=== PATIENT | female | born 1970 | race Caucasian/White ===

== ENCOUNTER 2016-04-12 20:30 | Emergency (ER) | payer MEDICAID ==
[~2016-04-12 20:30] MED LIST: 24HOUR ALLERGY10 MG PO; CYMBALTA30 M1 PO; GABAPENTIN300 M1 PO; LYRICA75 MG/CAP PO; OMEPRAZOLE40 M2 PO; XANAX0.5 M1 PO
[2016-04-12] MEDS ORDERED: LYRICA (20:42)
[2016-04-12] MEDS ORDERED: LISINIPRIL (20:42)
[2016-04-12] MEDS ORDERED: XANAX (20:43)
[2016-04-12 22:00] LABS: BASO % 0.4 % (0-2); EOSINOPHIL ABSOLUTE COUNT 0.2 tho/cmm (0.0-0.7); HCT-HEMATOCRIT 34.7 % (34.0-49.0); HGB-HEMOGLOBIN 11.8 gm/dl (12.0-15.5); IMMATURE GRANULOCYTES ABSOLUTE 0.02 tho/cmm (0-0.03); IMMATURE GRANULOCYTES PERCENT 0.2 % (0-0.3); LYMPH ABSOLUTE COUNT 2.3 tho/cmm (0.8-4.5); MCH (MEAN CORPUSCULAR HGB) 30.2 pg (28.0-32.0); MCV (MEAN CELL VOLUME) 88.7 fl (82.0-96.0); MEAN PLATELET VOLUME 9.2 cmc (9.4-12.4); MONO % 6.6 % (0-12); MONOCYTE ABSOLUTE COUNT 0.6 tho/cmm (0.0-1.2); NEUTROPHIL ABSOLUTE COUNT 5.3 tho/cmm (1.6-8.0); NEUTROPHIL-AUTOMATED 5.3 tho/cmm (1.6-8.0); NEUTROPHILS % 63.8 % (40-80); PLATELET COUNT 388 tho/cmm (150-450); RED BLOOD COUNT 3.91 mil/cmm (4.00-5.20); RED CELL DISTRIBUTION WIDTH 15.4 % (12.4-16.4); WHITE BLOOD COUNT 8.3 tho/cmm (4.0-10.0)
[2016-04-12 22:14] LABS: ALB/GLOB RATIO 0.8 (0.8-2.0); ALBUMIN 3.3 g/dl (3.5-5.0); ALKALINE PHOSPHATASE 63 U/L (33-138); ALT/SGPT 17 U/L (12-78); BILIRUBIN,TOTAL 0.1 mg/dl (0-1.5); BLOOD UREA NITROGEN 12 mg/dl (6-24); CALCIUM 7.9 mg/dl (8.5-10.5); CARBON DIOXIDE-VENOUS 19 mmol/L (22-32); CHLORIDE 110 mmol/l (96-110); CREATININE 0.62 mg/dl (0.50-1.10); GLUCOSE 80 mg/dL (70-110); LIPASE 296 U/L (73-393); SODIUM 141 mmol/L (135-145); eGFR VALUE FOR BLACK >90 mL/Min
[2016-04-12 22:21] LABS: PREGNANCY-SERUM NEGATIVE (NEGATIVE)
[2016-04-12 22:29] LABS: ANION GAP 16 mmol/L (0-20); AST/SGOT 19 U/L (10-40); POTASSIUM 3.7 mmol/L (3.7-5.1)
[2016-04-12 23:19] LABS: ALCOHOL (ETOH) 276 mg/dl (<10)
== END 2016-04-13 01:34 ==
LOC: EDMED 20:30
PROVIDERS: Emergency Medicine
DX: R52 Pain, unspecified (principal); F10.129 Alcohol abuse with intoxication, unspecified; I10 Essential (primary) hypertension; Z98.890 Other specified postprocedural states; Z79.899 Other long term (current) drug therapy; Y90.8 Blood alcohol level of 240 mg/100 ml or more
CPT/HCPCS: G0480; J7030

== ENCOUNTER 2016-04-24 23:23 | Emergency (ER) | payer MEDICAID ==
[~2016-04-24 23:23] MED LIST changes: +LISINIPRIL; +LYRICA; +XANAX
[2016-04-25 01:03] LABS: BASO % 0.3 % (0-2); EOS % 1.2 % (0-7); EOSINOPHIL ABSOLUTE COUNT 0.1 tho/cmm (0.0-0.7); HCT-HEMATOCRIT 38.3 % (34.0-49.0); HGB-HEMOGLOBIN 12.9 gm/dl (12.0-15.5); IMMATURE GRANULOCYTES ABSOLUTE 0.02 tho/cmm (0-0.03); IMMATURE GRANULOCYTES PERCENT 0.2 % (0-0.3); LYMPH % 28.3 % (20-45); LYMPH ABSOLUTE COUNT 2.6 tho/cmm (0.8-4.5); MCH (MEAN CORPUSCULAR HGB) 29.4 pg (28.0-32.0); MCHC MEAN CORPUSCULAR HGB CONC 33.7 % (32.0-36.0); MCV (MEAN CELL VOLUME) 87.2 fl (82.0-96.0); MEAN PLATELET VOLUME 8.7 cmc (9.4-12.4); MONO % 7.7 % (0-12); MONOCYTE ABSOLUTE COUNT 0.7 tho/cmm (0.0-1.2); NEUTROPHIL ABSOLUTE COUNT 5.7 tho/cmm (1.6-8.0); NEUTROPHIL-AUTOMATED 5.7 tho/cmm (1.6-8.0); NEUTROPHILS % 62.3 % (40-80); PLATELET COUNT 408 tho/cmm (150-450); RED BLOOD COUNT 4.39 mil/cmm (4.00-5.20); RED CELL DISTRIBUTION WIDTH 15.2 % (12.4-16.4); WHITE BLOOD COUNT 9.1 tho/cmm (4.0-10.0)
[2016-04-25 01:25] LABS: ALB/GLOB RATIO 0.9 (0.8-2.0); ALKALINE PHOSPHATASE 76 U/L (33-138); ALT/SGPT 29 U/L (12-78); ANION GAP 12 mmol/L (0-20); AST/SGOT 23 U/L (10-40); BILIRUBIN,TOTAL 0.1 mg/dl (0-1.5); BLOOD UREA NITROGEN 14 mg/dl (6-24); CARBON DIOXIDE-VENOUS 25 mmol/L (22-32); CHLORIDE 108 mmol/l (96-110); CREATININE 0.71 mg/dl (0.50-1.10); GLUCOSE 89 mg/dL (70-110); POTASSIUM 3.6 mmol/L (3.7-5.1); SALICYLATE 3.1 mg/dl (2.8-20); SODIUM 141 mmol/L (135-145); eGFR VALUE FOR BLACK >90 mL/Min
[2016-04-25 01:31] LABS: ACETAMINOPHEN LEVEL <3 ug/ml (10-30)
[2016-04-25 01:34] LABS: ALCOHOL (ETOH) >300 mg/dl (<10)
== END 2016-04-25 02:59 ==
LOC: EDMED 23:23
PROVIDERS: Family Medicine
DX: F10.129 Alcohol abuse with intoxication, unspecified (principal); Y90.8 Blood alcohol level of 240 mg/100 ml or more; I10 Essential (primary) hypertension; K21.9 Gastro-esophageal reflux disease without esophagitis; Z79.899 Other long term (current) drug therapy; F17.210 Nicotine dependence, cigarettes, uncomplicated
CPT/HCPCS: G0480; J7030